=== PATIENT | male | born 1945 | race Caucasian/White ===

== ENCOUNTER 2016-07-30 10:31 | Outpatient (CLI) | payer MEDICARE ==
--- NOTE | 2016-08-01 17:52 | DIAGNOSTIC IMAGING REPORT ---
REFERRING PHYSICIAN/PROVIDER: Nils Bullock MD CONSULTING SYSTEMS PROGRAMMER: Julián Mitchell MD PROCEDURE: M-mode 2D echocardiography with spectral and color flow Doppler TECHNICAL QUALITY: The study quality was technically adequate. INDICATION: A-FIB RHYTHM DURING PROCEDURE: The patient was in atrial fibrillation with controlled ventricular rate during the exam. INTERPRETATIONS: LEFT VENTRICLE: The left ventricle is normal in size. Left ventricular wall thickness is borderline increased. Left ventricular systolic function is borderline reduced. The ejection fraction is estimated to be 50-55%. There are no obvious focal wall motion abnormalities but poor endocardial definition reduces the sensitivity for the detection of such. The E/E' ratio is within normal limits consistent with normal filling pressures. RIGHT VENTRICLE: The right ventricle is normal in size. The right ventricular systolic function is mildly reduced. The right ventricular systolic pressure is estimated at 33 mmHg assuming a right atrial pressure of 3 mmHg. ATRIA: The left atrial is mildly dilated. The right atrium grossly appears normal in size. The interatrial septum is intact with no evidence for an atrial septal defect. MITRAL VALVE: The mitral valve is normal in structure and function. There is mild mitral regurgitation. AORTIC VALVE: The aortic valve is trileaflet. Aortic valve is slightly calcified. Leaflet mobility appears to be mild to moderately reduced. There is mild aortic stenosis with a valve area calculated at 1 0.52 cm2 and the peak velocity is 1.79 meters per second. There is mild to moderate aortic regurgitation. TRICUSPID VALVE: The tricuspid valve is normal in structure and function. There is mild tricuspid regurgitation. PULMONIC VALVE: The pulmonic valve is not well seen but is grossly normal. There is trace pulmonic regurgitation. GREAT VESSELS: The aorta root is normal size. The ascending aorta is not well visualized. The IVC is of normal diameter and collapses greater than 50% the sniff. This suggests a low right atrial pressure of 3 mmHg. PERICARDIUM: There is no pericardial fusion. IMPRESSION: 1. There is borderline reduced LV systolic function with mildly reduced RV systolic function. The right ventricular systolic pressure is within normal limits and the LV diastolic function appears to be grossly normal. 2. Left atrium is mildly dilated. 3. There appears to be mild aortic stenosis and mild to moderate aortic regurgitation. There is also mild tricuspid regurgitation. 4. The aortic root is normal size.
== END 2016-07-30 23:00 ==
LOC: US SRH 10:31
DX: I07.1 Rheumatic tricuspid insufficiency (principal)